=== PATIENT | female | born 2000 | race African-American/Black ===

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

== ENCOUNTER 2021-03-08 19:05 | Emergency (ER) | payer OTHER, SELFPAY ==
[2021-03-08] MEDS ORDERED: Sulfameth/Trimethoprim DS 800-160mg TAB ONE (19:52)
== END 2021-03-08 19:55 | disposition home or self-care (01) ==
LOC: MADERS 19:05
DX: L08.9 Local infection of the skin and subcutaneous tissue, unspecified (principal)
CPT/HCPCS: 99283

== ENCOUNTER 2021-03-10 10:21 | Emergency (ER) | payer SELFPAY ==
[2021-03-10] MEDS ORDERED: Lidocaine 1% 20 ML MDV ONE (10:40)
== END 2021-03-10 11:05 | disposition home or self-care (01) ==
LOC: MADERS 10:21
DX: L02.215 Cutaneous abscess of perineum (principal)
CPT/HCPCS: 56405

== ENCOUNTER 2021-09-30 12:46 | Emergency (ER) | payer SELFPAY ==
[2021-09-30] MEDS ORDERED: Lidocaine 1% w/Epinephrine 1:100K 20 ML VIAL ONE (13:34)
== END 2021-09-30 13:55 | disposition home or self-care (01) ==
LOC: MADERS 12:46
DX: N76.4 Abscess of vulva (principal)
CPT/HCPCS: 56405

== ENCOUNTER 2021-11-18 14:31 | Emergency (ER) | payer BC ==
[2021-11-18] MEDS ORDERED: Lidocaine 1%/Epinephrine 1:100K 10 ML VIAL ONE (15:25)
[2021-11-18] MEDS ORDERED: Boostrix 0.5 ML (Tdap) VIAL ONE (15:37)
== END 2021-11-18 15:45 | disposition home or self-care (01) ==
LOC: MADERS 14:31
DX: N76.4 Abscess of vulva (principal); F17.290 Nicotine dependence, other tobacco product, uncomplicated; Z23 Encounter for immunization
CPT/HCPCS: 56405; 90471; 90715

== ENCOUNTER 2022-03-29 10:20 | Emergency (ER) | payer BC, OTHER ==
[2022-03-29] MEDS ORDERED: Lidocaine 1%/Epinephrine 1:100K 10 ML VIAL ONE (10:47)
[2022-03-29] MEDS ORDERED: Sulfameth/Trimethoprim DS 800-160mg TAB ONE (11:10)
[2022-03-29] MEDS ORDERED: Ibuprofen 800 MG TAB ONE (11:10)
== END 2022-03-29 11:12 | disposition home or self-care (01) ==
LOC: MADERS 10:20
DX: K65.1 Peritoneal abscess (principal)
CPT/HCPCS: 56405; 87070; 87205

== ENCOUNTER 2022-06-07 13:40 | Emergency (ER) | payer BC, OTHER ==
[2022-06-07] MEDS ORDERED: Lidocaine 1% (PF) 30 ML VIAL ONE (14:12)
== END 2022-06-07 14:44 | disposition home or self-care (01) ==
LOC: MADERS 13:40
DX: L02.214 Cutaneous abscess of groin (principal); F17.290 Nicotine dependence, other tobacco product, uncomplicated
CPT/HCPCS: 10060; 87070; 87186; 87205; J2001

== ENCOUNTER 2022-06-09 10:05 | Emergency (ER) | payer OTHER | END 2022-06-09 10:39 | disposition home or self-care (01) | LOC: MADERS 10:05 | DX: Z48.00 Encounter for change or removal of nonsurgical wound dressing (principal); L02.214 Cutaneous abscess of groin | CPT/HCPCS: 99282 ==

== ENCOUNTER 2022-09-30 19:34 | Emergency (ER) | payer BC, MEDICAID, OTHER ==
[2022-09-30] MEDS ORDERED: Lidocaine 1% PF 5 ML VIAL ONE (20:30)
[2022-09-30] MEDS ORDERED: Lidocaine 1% w/Epinephrine 1:100K 20 ML VIAL ONE (20:31)
[2022-09-30] MEDS ORDERED: Sulfameth/Trimethoprim DS 800-160mg TAB ONE (20:55)
[2022-09-30] MEDS ORDERED: Cephalexin 500 MG CAP ONE (20:55)
== END 2022-09-30 21:06 | disposition home or self-care (01) ==
LOC: MADERS 19:34
DX: L02.214 Cutaneous abscess of groin (principal)
CPT/HCPCS: 10060

== ENCOUNTER 2024-02-12 22:13 | Emergency (ER) | payer OTHER ==
[2024-02-12] MEDS ORDERED: HYDROcodone/Acetaminophen 5/325 mg Tablet ONE (22:41)
[2024-02-12] MEDS ORDERED: Ketorolac Tromethamine 30 MG (1 mL) VIAL ONE (22:42)
[2024-02-12] MEDS ORDERED: Lidocaine 1% (PF) 30 ML VIAL ONE (22:42)
== END 2024-02-12 23:28 | disposition home or self-care (01) ==
LOC: MADERS 22:13
DX: L02.214 Cutaneous abscess of groin (principal); F17.210 Nicotine dependence, cigarettes, uncomplicated
CPT/HCPCS: 10060; 96372; J1885; J2001

== ENCOUNTER 2024-03-09 11:54 | Emergency (ER) | payer OTHER | END 2024-03-09 13:17 | disposition home or self-care (01) | LOC: MADERS 11:54 | DX: R19.7 Diarrhea, unspecified (principal); F17.210 Nicotine dependence, cigarettes, uncomplicated | CPT/HCPCS: 99283 ==

== ENCOUNTER 2024-04-01 16:26 | Emergency (ER) | payer OTHER | END 2024-04-01 17:55 | disposition home or self-care (01) | LOC: MADERS 16:26 | DX: J02.9 Acute pharyngitis, unspecified (principal); F17.210 Nicotine dependence, cigarettes, uncomplicated | CPT/HCPCS: 87081; 87400; 87430; 99284 ==